=== PATIENT | female | born 1995 | race Caucasian/White ===

== ENCOUNTER 2021-07-20 17:08 | Outpatient (CLI) | payer OTHER, SELFPAY ==
[2021-07-24 13:01] LABS: Progesterone 22.8 ng/mL (***)
== END 2021-07-20 17:09 | disposition home or self-care (01) ==
LOC: ANHLAB 17:17
PROVIDERS: Visit Provider Advanced Practice Midwife
DX: N97.9 Female infertility, unspecified (principal)
CPT/HCPCS: 36415; 84144